=== PATIENT | female | born 1940 | race African-American/Black ===

== ENCOUNTER → 2017-10-19 | Outpatient (CLI) | payer MEDICARE, MEDICAID | END | disposition home or self-care (01) | LOC: Rad HDHVI 13:11 | PROVIDERS: ATTEND Internal Medicine Cardiovascular Disease | DX: I63.9 Cerebral infarction, unspecified (principal); I70.8 Atherosclerosis of other arteries; R29.818 Other symptoms and signs involving the nervous system | CPT/HCPCS: 70450 ==

== ENCOUNTER → 2017-11-10 | Outpatient (CLI) | payer MEDICARE, MEDICAID | END | disposition home or self-care (01) | LOC: Rad HDHVI 09:29 | PROVIDERS: ATTEND Internal Medicine Cardiovascular Disease | DX: I08.3 Combined rheumatic disorders of mitral, aortic and tricuspid valves (principal); E78.2 Mixed hyperlipidemia; I63.9 Cerebral infarction, unspecified | CPT/HCPCS: 93306; 93880 ==

== ENCOUNTER → 2017-11-25 | Outpatient (CLI) | payer MEDICARE, MEDICAID | END | disposition home or self-care (01) | LOC: Rad HDHVI 12:30 | PROVIDERS: ATTEND Internal Medicine Cardiovascular Disease | DX: J32.9 Chronic sinusitis, unspecified (principal) | CPT/HCPCS: 70220 ==

== ENCOUNTER → 2017-11-30 | Outpatient (CLI) | payer MEDICARE, MEDICAID ==
[~2017-11-30] MED LIST: ALEN70TA2 PO; ATOR20TA PO; CLOP75TA28 PO; DULO60CA PO; GABA300C10 PO; HYDR-2551 PO; LATA0.0015 EACHEYE; LISI40TA PO; MAGN400C2 PO; METO25TA5 PO; TRAV0.00 EACHEYE
[2017-11-30 11:00] VITALS: BP 187/76
[2017-11-30 11:45] VITALS: BP 163/77
[2017-11-30 16:11] LABS: BUN/Creatinine Ratio 14.1; Calcium 8.6 mg/dL (8.5-10.1)
[2017-11-30 16:29] LABS: Basophils # (auto) 0 uL; Basophils % (auto) 0.7 % (0.0-2.0); Eosinophils # (auto) 0.1 uL; Eosinophils % (auto) 2.3 % (0.0-7.0); Hematocrit 35.1 % (36.0-46.0); Hemoglobin 11.7 g/dL (12.2-16.2); Lymphocytes # (auto) 1.1 uL; Lymphocytes % (auto) 23.9 % (10.0-50.0); Mean Corpuscular Hemoglobin 32.1 pg (28.0-32.0); Mean Corpuscular Hgb Conc. 33.4 g/dL (32.0-36.0); Monocytes # (auto) 0.7 uL; Monocytes % (auto) 14.8 % (0.0-12.0); Neutrophils # (auto) 2.6 uL; Neutrophils % (auto) 58.3 % (37.0-80.0); Nucleated Red Blood Cells % 0.8 %; Platelet Count (auto) 187 10^3/uL (140-450); Red Blood Cells 3.65 10^6/uL (4.0-5.20); Red Cell Distribution Width 14.3 % (11.8-14.3); White Blood Cell 4.5 10^3/uL (4.4-10.8)
[2017-11-30 16:50] LABS: INR 0.92 (0.9-1.15); Partial Thromboplastin Time 28.2 sec (22.64-33.71)
== END | disposition home or self-care (01) ==
LOC: Rad HDHVI 11:05
PROVIDERS: ATTEND Internal Medicine Cardiovascular Disease
DX: Z01.818 Encounter for other preprocedural examination (principal); I70.0 Atherosclerosis of aorta; I10 Essential (primary) hypertension; D64.9 Anemia, unspecified; R79.1 Abnormal coagulation profile; E78.2 Mixed hyperlipidemia; J32.9 Chronic sinusitis, unspecified
CPT/HCPCS: 36415; 71046; 80048; 85025; 85610; 85730; 93005; G0463

== ENCOUNTER 2017-12-02 10:37 | Day surgery (SDC) | payer MEDICARE, MEDICAID ==
[~2017-12-02] VITALS: Ht 165.1 cm; Wt 78.5 kg
[2017-12-02] MEDS ORDERED: IOHEXOL 350 MG/ML 100ML IJ ONE (13:19)
[2017-12-02] MEDS ORDERED: LIDOCAINE HCL 2 %PF INJ 10ML AMP IJ ONE (13:19)
[2017-12-02] MEDS ORDERED: methylPREDNISolone SOD SUCC 125 MG/2 ML VL ONE (13:53)
[2017-12-02] MEDS ORDERED: diphenhdrAMINE HCL 50 MG/1 ML VL ONE (13:53)
[2017-12-02] MEDS ORDERED: MIDAZOLAM HCL 1MG/1ML-2 ML VIAL ONE (13:54)
[2017-12-02] MEDS ORDERED: fentaNYL CITRATE 100 MCG/2 ML VL ONE (13:54)
[2017-12-02] MEDS ORDERED: FAMOTIDINE (10MG/ML) 2ML VL IV ONE (13:54)
[2017-12-02] MEDS ORDERED: hydrALAZINE HCL 20 MG/ML VL ONE (14:52)
[2017-12-02] MEDS ORDERED: ONDANSETRON HCL 4 MG/2 ML VIAL ONE (15:15)
== END 2017-12-02 18:29 | disposition home or self-care (01) ==
LOC: CATH 10:37
PROVIDERS: ATTEND Internal Medicine Cardiovascular Disease
DX: I35.0 Nonrheumatic aortic (valve) stenosis (principal); I50.30 Unspecified diastolic (congestive) heart failure; Z88.5 Allergy status to narcotic agent; Z91.041 Radiographic dye allergy status; Z88.7 Allergy status to serum and vaccine; Z88.8 Allergy status to other drugs, medicaments and biological substances; E66.9 Obesity, unspecified; I25.2 Old myocardial infarction; I10 Essential (primary) hypertension; E78.5 Hyperlipidemia, unspecified; Z87.891 Personal history of nicotine dependence; I50.9 Heart failure, unspecified; Z79.01 Long term (current) use of anticoagulants; Z79.899 Other long term (current) drug therapy; I63.9 Cerebral infarction, unspecified
CPT/HCPCS: 93460; C1760; C1894; J0360; J1200; J1644; J2250; J2405; J2930; J3010; J3490; J7030; Q9967; 99152

== ENCOUNTER 2018-01-02 23:12 | Inpatient (IN) | payer MEDICARE, MEDICAID ==
[~2018-01-02] VITALS: Ht 167.6 cm; Wt 78.6 kg
[2018-01-03 00:31] LABS: Basophils # (auto) 0.1 uL; Eosinophils # (auto) 0.2 uL; Eosinophils % (auto) 2.1 % (0.0-7.0); Hematocrit 34.1 % (36.0-46.0); Hemoglobin 10.8 g/dL (12.2-16.2); Lymphocytes # (auto) 1.4 uL; Mean Corpuscular Hemoglobin 30.6 pg (28.0-32.0); Mean Corpuscular Hgb Conc. 31.8 g/dL (32.0-36.0); Mean Corpuscular Volume 96.1 fL (80.0-100.0); Monocytes # (auto) 0.4 uL; Monocytes % (auto) 5.3 % (0.0-12.0); Neutrophils # (auto) 5.3 uL; Neutrophils % (auto) 72.6 % (37.0-80.0); Nucleated Red Blood Cells % 0.1 %; Platelet Count (auto) 302 10^3/uL (140-450); Red Blood Cells 3.55 10^6/uL (4.0-5.20); Red Cell Distribution Width 17.4 % (11.8-14.3); White Blood Cell 7.3 10^3/uL (4.4-10.8)
[2018-01-03 00:38] LABS: INR 1.01 (0.9-1.15); Partial Thromboplastin Time 25.8 sec (23.78-33.04); Prothrombin Time 10.8 sec (9.27-12.13)
[2018-01-03 00:42] LABS: Alanine Aminotransferase 16 U/L (13-56); Albumin 2.7 g/dL (3.4-5.0); Anion Gap 11 (5-15); Aspartate Aminotransferase 19 U/L (15-37); BUN/Creatinine Ratio 8.9; Blood Urea Nitrogen 9 mg/dL (7-18); Calcium 8.6 mg/dL (8.5-10.1); Carbon Dioxide 24 mmol/L (21-32); Chloride 107 mmol/L (98-107); GFR African American 68 mL/min; GFR Non-African American 56 mL/min; Glucose 124 mg/dL (74-106); Magnesium 2.3 mg/dL (1.6-2.6); Potassium 3.5 mmol/L (3.5-5.1); Sodium 142 mmol/L (136-145)
[2018-01-03 00:48] LABS: Alkaline Phosphatase 74 U/L (45-117); Bilirubin, Total 0.3 mg/dL (0.2-1.0); Total Protein 7.3 g/dL (6.4-8.2)
[2018-01-03] MEDS ORDERED: ONDANSETRON HCL 4 MG/2 ML VIAL IV ONE (01:00)
[2018-01-03] MEDS ORDERED: SODIUM CHLORIDE 0.9% 1,000 ML IV ONE (01:00)
[2018-01-03] MEDS ORDERED: ONDANSETRON HCL 4 MG/2 ML VIAL IV PRN (07:00)
[2018-01-03] MEDS ORDERED: ACETAMINOPHEN 500 MG TAB PO PRN (07:00)
[2018-01-03 07:16] LABS: Urine WBC None Seen /hpf (0 - 5)
[2018-01-03 07:17] LABS: Basophils # (auto) 0.1 uL; Eosinophils # (auto) 0.1 uL; Eosinophils % (auto) 1.9 % (0.0-7.0); Hemoglobin 9.4 g/dL (12.2-16.2); Lymphocytes # (auto) 1.4 uL; Lymphocytes % (auto) 26.3 % (10.0-50.0); Mean Corpuscular Hemoglobin 30.3 pg (28.0-32.0); Mean Corpuscular Hgb Conc. 31.5 g/dL (32.0-36.0); Mean Corpuscular Volume 96.4 fL (80.0-100.0); Monocytes # (auto) 0.5 uL; Monocytes % (auto) 9.6 % (0.0-12.0); Neutrophils # (auto) 3.2 uL; Neutrophils % (auto) 61.2 % (37.0-80.0); Nucleated Red Blood Cells % 0.1 %; Platelet Count (auto) 263 10^3/uL (140-450); Red Blood Cells 3.11 10^6/uL (4.0-5.20); Red Cell Distribution Width 17.8 % (11.8-14.3); White Blood Cell 5.2 10^3/uL (4.4-10.8)
[2018-01-03 07:26] LABS: Urine Bacteria FEW /hpf (None Seen); Urine Blood Negative /uL (Negative); Urine Hyaline Cast FEW /lpf (0 - 2); Urine Mucus FEW (None Seen)
[2018-01-03 07:44] LABS: BUN/Creatinine Ratio 14.3; Potassium 3.8 mmol/L (3.5-5.1)
[2018-01-03] MEDS ORDERED: LISINOPRIL 20 MG TAB PO SCH (10:00)
[2018-01-03] MEDS: GABAPENTIN 300 MG CAP PO SCH ×2 (10:11→23:08)
[2018-01-03] MEDS: DULoxetine HCL 30 MG CAP PO SCH (10:11)
[2018-01-03] MEDS: CLOPIDOGREL BISULFATE 75 MG TAB PO SCH (10:12)
[2018-01-03 22:35] VITALS: BP 180/80
[2018-01-03 23:46] VITALS: BP 180/80
[2018-01-04] MEDS ORDERED: LISINOPRIL 20 MG TAB PO ONE (00:15)
[2018-01-04] MEDS ORDERED: METO25TA3 PO (04:48)
[2018-01-04] MEDS ORDERED: GABA300C PO (04:48)
[2018-01-04] MEDS ORDERED: METO25TA5 PO (04:48)
[2018-01-04] MEDS ORDERED: LISI40TA PO (04:48)
[2018-01-04] MEDS ORDERED: GABA100C9 PO (04:48)
[2018-01-04 05:37] VITALS: BP 160/79
[2018-01-04 08:00] VITALS: BP 152/88
[2018-01-04 09:00] VITALS: BP 140/59
[2018-01-04] MEDS: DULoxetine HCL 30 MG CAP PO SCH (10:53)
[2018-01-04] MEDS: CLOPIDOGREL BISULFATE 75 MG TAB PO SCH (10:53)
[2018-01-04] MEDS: GABAPENTIN 300 MG CAP PO SCH ×2 (10:53→21:51)
[2018-01-04] MEDS: LISINOPRIL 20 MG TAB PO SCH ×2 (10:54→21:52)
[2018-01-04 13:00] VITALS: BP 191/101
[2018-01-04 17:00] VITALS: BP 174/78
[2018-01-04] MEDS: cloNIDine HCL 0.1 MG TAB PO PRN (17:28)
[2018-01-04] MEDS: METOPROLOL TARTRATE 25 MG TAB PO SCH (21:53)
[2018-01-04 22:00] VITALS: BP 153/70
[2018-01-05 05:00] VITALS: BP 152/74
[2018-01-05 08:00] VITALS: BP_SYST 140; BP_SYST 149; BP_DIAS 65; BP_DIAS 70
[2018-01-05] MEDS: CLOPIDOGREL BISULFATE 75 MG TAB PO SCH (10:19)
[2018-01-05] MEDS: LISINOPRIL 20 MG TAB PO SCH ×2 (10:19→23:21)
[2018-01-05] MEDS: GABAPENTIN 300 MG CAP PO SCH ×2 (10:19→23:21)
[2018-01-05] MEDS: DULoxetine HCL 30 MG CAP PO SCH (10:19)
[2018-01-05 12:35] VITALS: BP 151/79
[2018-01-05] MEDS ORDERED: EPOETIN ALFA 10,000 UNIT/1 ML VIAL SC ONE (15:00)
[2018-01-05] MEDS ORDERED: TRIAMCINOLONE 40MG/ML 1ML VIAL IX ONE (15:15)
[2018-01-05] MEDS ORDERED: LIDOCAINE 2% (LOCAL ANESTH.) PF 5ml SDV IJ ONE (15:15)
[2018-01-05 16:00] LABS: Basophils # (auto) 0.1 uL; Basophils % (auto) 0.7 % (0.0-2.0); Eosinophils # (auto) 0.1 uL; Hematocrit 31.9 % (36.0-46.0); Hemoglobin 10.3 g/dL (12.2-16.2); Lymphocytes # (auto) 1.3 uL; Lymphocytes % (auto) 15.9 % (10.0-50.0); Mean Corpuscular Hemoglobin 30.9 pg (28.0-32.0); Mean Corpuscular Hgb Conc. 32.4 g/dL (32.0-36.0); Mean Corpuscular Volume 95.3 fL (80.0-100.0); Monocytes # (auto) 0.8 uL; Neutrophils # (auto) 5.9 uL; Neutrophils % (auto) 72.4 % (37.0-80.0); Nucleated Red Blood Cells % 0.1 %; Platelet Count (auto) 225 10^3/uL (140-450); Red Blood Cells 3.35 10^6/uL (4.0-5.20); Red Cell Distribution Width 17.3 % (11.8-14.3); White Blood Cell 8.2 10^3/uL (4.4-10.8)
[2018-01-05 16:28] VITALS: BP 150/107
[2018-01-05] MEDS: cefTRIAXone 1GM/10ml IVPUSH 10 ML IV SCH (18:06)
[2018-01-05] MEDS: FERROUS SULFATE 325 MG TAB PO SCH (18:06)
[2018-01-05] MEDS: ALLOPURINOL 300 MG TAB PO SCH (18:06)
[2018-01-05] MEDS: SODIUM CHLORIDE 0.9% 1,000 ML IV SCH (18:06)
[2018-01-05 22:00] VITALS: BP 169/64
[2018-01-05] MEDS ORDERED: KETOROLAC TROMETH 60MG/2ML VIAL IM ONE (22:45)
[2018-01-05] MEDS ORDERED: TRIAMCINOLONE 40MG/ML 1ML VIAL IM ONE (22:45)
[2018-01-05] MEDS: METOPROLOL TARTRATE 25 MG TAB PO SCH (23:22)
[2018-01-06] MEDS: SODIUM CHLORIDE 0.9% 1,000 ML IV SCH ×3 (01:00→21:29)
[2018-01-06 05:30] VITALS: BP 144/75
[2018-01-06 06:39] LABS: Basophils # (auto) 0 uL; Basophils % (auto) 0.8 % (0.0-2.0); Eosinophils # (auto) 0.1 uL; Hematocrit 27.6 % (36.0-46.0); Hemoglobin 9.1 g/dL (12.2-16.2); Lymphocytes # (auto) 1.2 uL; Mean Corpuscular Hemoglobin 31.2 pg (28.0-32.0); Mean Corpuscular Hgb Conc. 32.9 g/dL (32.0-36.0); Mean Corpuscular Volume 94.7 fL (80.0-100.0); Monocytes % (auto) 17.1 % (0.0-12.0); Neutrophils # (auto) 3.6 uL; Neutrophils % (auto) 60.1 % (37.0-80.0); Nucleated Red Blood Cells % 0.2 %; Platelet Count (auto) 194 10^3/uL (140-450); Red Blood Cells 2.91 10^6/uL (4.0-5.20); Red Cell Distribution Width 17.4 % (11.8-14.3); White Blood Cell 6.1 10^3/uL (4.4-10.8)
[2018-01-06 06:53] LABS: Albumin 2.3 g/dL (3.4-5.0); BUN/Creatinine Ratio 14.3; Calcium 8.2 mg/dL (8.5-10.1); Potassium 3.8 mmol/L (3.5-5.1)
[2018-01-06 06:56] LABS: Bilirubin, Total 0.3 mg/dL (0.2-1.0); Total Protein 6.6 g/dL (6.4-8.2)
[2018-01-06] MEDS: LISINOPRIL 20 MG TAB PO SCH ×2 (08:51→22:30)
[2018-01-06] MEDS: cefTRIAXone 1GM/10ml IVPUSH 10 ML IV SCH (08:51)
[2018-01-06] MEDS: ALLOPURINOL 300 MG TAB PO SCH (08:51)
[2018-01-06] MEDS: DULoxetine HCL 30 MG CAP PO SCH (08:52)
[2018-01-06] MEDS: FERROUS SULFATE 325 MG TAB PO SCH ×2 (08:52→17:39)
[2018-01-06] MEDS: CLOPIDOGREL BISULFATE 75 MG TAB PO SCH (08:52)
[2018-01-06] MEDS: GABAPENTIN 300 MG CAP PO SCH ×2 (08:52→22:27)
[2018-01-06 09:00] VITALS: BP 156/74
[2018-01-06] MEDS ORDERED: EPOETIN ALFA 10,000 UNIT/1 ML VIAL SC ONE (11:15)
[2018-01-06 13:00] VITALS: BP 161/87
[2018-01-06 16:46] VITALS: BP 141/69
[2018-01-06] MEDS ORDERED: TRIAMCINOLONE 40MG/ML 1ML VIAL IX ONE (17:45)
[2018-01-06] MEDS ORDERED: LIDOCAINE 2% (LOCAL ANESTH.) PF 5ml SDV IJ ONE (17:45)
[2018-01-06 20:00] VITALS: BP 159/86
[2018-01-06] MEDS: METOPROLOL TARTRATE 25 MG TAB PO SCH (22:27)
[2018-01-07 04:56] VITALS: BP 169/91
[2018-01-07] MEDS: SODIUM CHLORIDE 0.9% 1,000 ML IV SCH ×2 (07:00→18:11)
[2018-01-07] MEDS: cloNIDine HCL 0.1 MG TAB PO PRN (07:35)
[2018-01-07] MEDS: FERROUS SULFATE 325 MG TAB PO SCH ×2 (08:00→18:11)
[2018-01-07 09:00] VITALS: BP 183/94
[2018-01-07] MEDS: cefTRIAXone 1GM/10ml IVPUSH 10 ML IV SCH (09:40)
[2018-01-07] MEDS: DULoxetine HCL 30 MG CAP PO SCH (09:41)
[2018-01-07] MEDS: GABAPENTIN 300 MG CAP PO SCH ×2 (09:41→22:02)
[2018-01-07] MEDS: CLOPIDOGREL BISULFATE 75 MG TAB PO SCH (09:43)
[2018-01-07] MEDS: LISINOPRIL 20 MG TAB PO SCH ×2 (09:43→22:02)
[2018-01-07] MEDS: ALLOPURINOL 300 MG TAB PO SCH (09:43)
[2018-01-07 13:00] VITALS: BP 141/69
[2018-01-07] MEDS ORDERED: TRIAMCINOLONE 40MG/ML 1ML VIAL IX ONE ×2 (14:45)
[2018-01-07 17:00] VITALS: BP 149/75
[2018-01-07] MEDS: METOPROLOL TARTRATE 25 MG TAB PO SCH (22:01)
[2018-01-07 22:32] VITALS: BP 175/91
[2018-01-08] MEDS: cloNIDine HCL 0.1 MG TAB PO PRN (03:57)
[2018-01-08] MEDS: SODIUM CHLORIDE 0.9% 1,000 ML IV SCH ×3 (03:57→23:29)
[2018-01-08 05:32] VITALS: BP 169/91
[2018-01-08] MEDS: FERROUS SULFATE 325 MG TAB PO SCH ×2 (08:13→18:08)
[2018-01-08] MEDS: cefTRIAXone 1GM/10ml IVPUSH 10 ML IV SCH (08:14)
[2018-01-08 09:00] VITALS: BP 143/73
[2018-01-08] MEDS: GABAPENTIN 300 MG CAP PO SCH ×2 (10:02→21:17)
[2018-01-08] MEDS: DULoxetine HCL 30 MG CAP PO SCH (10:02)
[2018-01-08] MEDS: CLOPIDOGREL BISULFATE 75 MG TAB PO SCH (10:03)
[2018-01-08] MEDS: ALLOPURINOL 300 MG TAB PO SCH (10:07)
[2018-01-08] MEDS: LISINOPRIL 20 MG TAB PO SCH ×2 (10:10→21:18)
[2018-01-08 13:00] VITALS: BP 156/84
[2018-01-08 16:56] VITALS: BP 155/81
[2018-01-08] MEDS: BOOST 8 ounces PO SCH (18:08)
[2018-01-08] MEDS ORDERED: FUROSEMIDE 20 MG/2 ML VIAL IV ONE (20:30)
[2018-01-08] MEDS ORDERED: ALBUTEROL SULF 2.5 MG/0.5ML(0.5%) NEB SOLN NEB PRN (20:30)
[2018-01-08] MEDS: METOPROLOL TARTRATE 25 MG TAB PO SCH (21:17)
[2018-01-08 22:09] VITALS: BP 161/89
[2018-01-09] MEDS: cloNIDine HCL 0.1 MG TAB PO PRN (04:46)
[2018-01-09 05:19] VITALS: BP 193/102
[2018-01-09 08:00] VITALS: BP 119/63
[2018-01-09] MEDS: FERROUS SULFATE 325 MG TAB PO SCH ×2 (08:11→18:22)
[2018-01-09] MEDS: cefTRIAXone 1GM/10ml IVPUSH 10 ML IV SCH ×2 (08:11→11:29)
[2018-01-09] MEDS: BOOST 8 ounces PO SCH ×3 (08:11→18:22)
[2018-01-09] MEDS: ALLOPURINOL 300 MG TAB PO SCH (10:33)
[2018-01-09] MEDS: DULoxetine HCL 30 MG CAP PO SCH (10:33)
[2018-01-09] MEDS: LISINOPRIL 20 MG TAB PO SCH ×2 (10:33→22:11)
[2018-01-09] MEDS: GABAPENTIN 300 MG CAP PO SCH ×2 (10:34→22:06)
[2018-01-09] MEDS: CLOPIDOGREL BISULFATE 75 MG TAB PO SCH (10:34)
[2018-01-09 10:42] VITALS: BP 159/84
[2018-01-09] MEDS ORDERED: EPOETIN ALFA 10,000 UNIT/1 ML VIAL SC ONE (11:30)
[2018-01-09 12:30] LABS: Basophils # (auto) 0.1 uL; Basophils % (auto) 1.1 % (0.0-2.0); Eosinophils # (auto) 0 uL; Eosinophils % (auto) 0.6 % (0.0-7.0); Hematocrit 29.5 % (36.0-46.0); Hemoglobin 9.2 g/dL (12.2-16.2); Mean Corpuscular Hemoglobin 29.9 pg (28.0-32.0); Mean Corpuscular Hgb Conc. 31.1 g/dL (32.0-36.0); Mean Corpuscular Volume 96.4 fL (80.0-100.0); Monocytes # (auto) 0.6 uL; Monocytes % (auto) 12.3 % (0.0-12.0); Neutrophils # (auto) 3.4 uL; Platelet Count (auto) 236 10^3/uL (140-450); Red Blood Cells 3.06 10^6/uL (4.0-5.20); Red Cell Distribution Width 17.6 % (11.8-14.3); White Blood Cell 5.1 10^3/uL (4.4-10.8)
[2018-01-09 12:45] LABS: BUN/Creatinine Ratio 24.6; Calcium 9.1 mg/dL (8.5-10.1); Potassium 4.3 mmol/L (3.5-5.1)
[2018-01-09 13:03] VITALS: BP 142/79
[2018-01-09 16:36] VITALS: BP 135/77
[2018-01-09 22:00] VITALS: BP 142/75
[2018-01-09] MEDS: METOPROLOL TARTRATE 25 MG TAB PO SCH (22:09)
[2018-01-10 04:37] VITALS: BP 154/91
[2018-01-10] MEDS: cloNIDine HCL 0.1 MG TAB PO PRN (07:53)
[2018-01-10 09:00] VITALS: BP 199/105
[2018-01-10] MEDS: GABAPENTIN 300 MG CAP PO SCH ×2 (09:14→21:36)
[2018-01-10] MEDS: cefTRIAXone 1GM/10ml IVPUSH 10 ML IV SCH (09:14)
[2018-01-10] MEDS: FERROUS SULFATE 325 MG TAB PO SCH ×2 (09:14→17:36)
[2018-01-10] MEDS: DULoxetine HCL 30 MG CAP PO SCH (09:15)
[2018-01-10] MEDS: CLOPIDOGREL BISULFATE 75 MG TAB PO SCH (09:15)
[2018-01-10] MEDS: ALLOPURINOL 300 MG TAB PO SCH (09:15)
[2018-01-10] MEDS: BOOST 8 ounces PO SCH ×3 (09:16→17:37)
[2018-01-10] MEDS: LISINOPRIL 20 MG TAB PO SCH ×2 (09:16→21:36)
[2018-01-10 13:00] VITALS: BP 128/77
[2018-01-10 17:00] VITALS: BP 134/72
[2018-01-10 21:25] VITALS: BP 154/73
[2018-01-10] MEDS: METOPROLOL TARTRATE 25 MG TAB PO SCH (21:35)
[2018-01-11 04:40] VITALS: BP 156/88
[2018-01-11 09:00] VITALS: BP 155/89
[2018-01-11] MEDS: FERROUS SULFATE 325 MG TAB PO SCH (09:30)
[2018-01-11] MEDS: cefTRIAXone 1GM/10ml IVPUSH 10 ML IV SCH (09:30)
[2018-01-11] MEDS: BOOST 8 ounces PO SCH ×2 (09:30→12:00)
[2018-01-11] MEDS: CLOPIDOGREL BISULFATE 75 MG TAB PO SCH (09:31)
[2018-01-11] MEDS: DULoxetine HCL 30 MG CAP PO SCH (09:31)
[2018-01-11] MEDS: GABAPENTIN 300 MG CAP PO SCH (09:31)
[2018-01-11] MEDS: LISINOPRIL 20 MG TAB PO SCH (09:32)
[2018-01-11] MEDS: ALLOPURINOL 300 MG TAB PO SCH (09:32)
[2018-01-11 13:00] VITALS: BP 145/95
[2018-01-11 17:00] VITALS: BP 159/61
== END 2018-01-11 18:05 | disposition home or self-care (01) | DRG 291 ==
LOC: ER 23:13 → OVERFLOW 23:14 → WEST WING 01-03 22:35
PROVIDERS: ADMIT Nurse Practitioner Family; ATTEND Internal Medicine Cardiovascular Disease
PROC: 3E0U33Z Introduction of Anti-inflammatory into Joints, Percutaneous Approach (ICD-10-PCS; principal; 2018-01-11)
DX: I11.0 Hypertensive heart disease with heart failure (principal); A41.9 Sepsis, unspecified organism; J18.9 Pneumonia, unspecified organism; J44.0 Chronic obstructive pulmonary disease with (acute) lower respiratory infection; J44.1 Chronic obstructive pulmonary disease with (acute) exacerbation; I50.43 Acute on chronic combined systolic (congestive) and diastolic (congestive) heart failure; D64.9 Anemia, unspecified; M77.9 Enthesopathy, unspecified; R55 Syncope and collapse; K59.00 Constipation, unspecified; M81.0 Age-related osteoporosis without current pathological fracture; Z79.899 Other long term (current) drug therapy; Z79.83 Long term (current) use of bisphosphonates; Z82.49 Family history of ischemic heart disease and other diseases of the circulatory system; Z86.73 Personal history of transient ischemic attack (TIA), and cerebral infarction without residual deficits; Z88.5 Allergy status to narcotic agent; Z88.7 Allergy status to serum and vaccine; Z88.8 Allergy status to other drugs, medicaments and biological substances; Z91.041 Radiographic dye allergy status
CPT/HCPCS: 36415; 70450; 71045; 73100; 80048; 80053; 81001; 82607; 82962; 83690; 83735; 83880; 84484; 85025; 85610; 85730; 93005; 96361; 96374; 97116; 97163; 97530; J0885; J1885; J2405

== ENCOUNTER → 2018-03-10 | Outpatient (CLI) | payer MEDICARE, MEDICAID ==
[~2018-03-10] MED LIST changes: -ALEN70TA2 PO; +AMLO5TAB2 PO; +ATOR20TA50 PO; +BUTA-280 OR; +GABA100C9 PO; -HYDR-2551 PO; -LATA0.0015 EACHEYE; +LATA0.0020 EACHEYE; +LEVO-28 PO; +MAGN400T5 OR; +METO-169 PO; -METO25TA5 PO; +METO25TA62 PO; -TRAV0.00 EACHEYE
== END | disposition home or self-care (01) ==
LOC: Rad HDHVI 10:50
PROVIDERS: ATTEND Internal Medicine Cardiovascular Disease
DX: I08.2 Rheumatic disorders of both aortic and tricuspid valves (principal); I11.0 Hypertensive heart disease with heart failure; I50.9 Heart failure, unspecified; E78.5 Hyperlipidemia, unspecified; Z79.899 Other long term (current) drug therapy
CPT/HCPCS: 93306

== ENCOUNTER 2018-04-18 08:45 | Emergency (ER) | payer MEDICARE, MEDICAID ==
[~2018-04-18] VITALS: Ht 165.1 cm; Wt 73.0 kg
[2018-04-18 10:13] LABS: Basophils # (auto) 0 uL; Basophils % (auto) 0.9 % (0.0-2.0); Eosinophils # (auto) 0.1 uL; Eosinophils % (auto) 2.4 % (0.0-7.0); Hematocrit 37.8 % (36.0-46.0); Hemoglobin 12.6 g/dL (12.2-16.2); Lymphocytes # (auto) 1.6 uL; Lymphocytes % (auto) 31.4 % (10.0-50.0); Mean Corpuscular Hemoglobin 31.5 pg (28.0-32.0); Mean Corpuscular Hgb Conc. 33.2 g/dL (32.0-36.0); Mean Corpuscular Volume 94.8 fL (80.0-100.0); Monocytes # (auto) 0.5 uL; Monocytes % (auto) 8.9 % (0.0-12.0); Neutrophils # (auto) 2.9 uL; Neutrophils % (auto) 56.4 % (37.0-80.0); Nucleated Red Blood Cells % 0.1 %; Platelet Count (auto) 188 10^3/uL (140-450); Red Blood Cells 3.99 10^6/uL (4.0-5.20); Red Cell Distribution Width 16.9 % (11.8-14.3); White Blood Cell 5.2 10^3/uL (4.4-10.8)
[2018-04-18 10:30] LABS: Alanine Aminotransferase 23 U/L (13-56); Albumin 3.1 g/dL (3.4-5.0); Anion Gap 10 (5-15); Aspartate Aminotransferase 18 U/L (15-37); Blood Urea Nitrogen 13 mg/dL (7-18); Calcium 8.3 mg/dL (8.5-10.1); Carbon Dioxide 24 mmol/L (21-32); Chloride 107 mmol/L (98-107); GFR African American 113 mL/min; GFR Non-African American 94 mL/min; Glucose 83 mg/dL (74-106); Magnesium 2.3 mg/dL (1.6-2.6); Sodium 141 mmol/L (136-145)
[2018-04-18 10:35] LABS: Alkaline Phosphatase 81 U/L (45-117); Bilirubin, Total 0.3 mg/dL (0.2-1.0)
[2018-04-18] MEDS ORDERED: SODIUM CHLORIDE 0.9% 1,000 ML IV ONE (10:40)
[2018-04-18 13:35] LABS: Urine Bacteria NONE SEEN /hpf (None Seen); Urine Blood Negative /uL (Negative); Urine WBC 1 /hpf (0 - 5)
[2018-04-18 16:30] VITALS: BP 163/83
== END 2018-04-18 17:34 | disposition home or self-care (01) ==
LOC: ER 08:45 → EDBD 08:45 → ER 17:34
DX: R55 Syncope and collapse (principal); E46 Unspecified protein-calorie malnutrition; E78.5 Hyperlipidemia, unspecified; I25.2 Old myocardial infarction; Z90.710 Acquired absence of both cervix and uterus; Z86.73 Personal history of transient ischemic attack (TIA), and cerebral infarction without residual deficits; Z98.61 Coronary angioplasty status; Z87.891 Personal history of nicotine dependence; Z95.0 Presence of cardiac pacemaker; Z68.26 Body mass index [BMI] 26.0-26.9, adult
CPT/HCPCS: 36415; 70450; 71045; 80053; 81001; 82962; 83735; 84443; 84484; 85025; 96360; 96361; 99285; J7030

== ENCOUNTER → 2018-04-28 | Outpatient (CLI) | payer MEDICARE, MEDICAID ==
[~2018-04-28] MED LIST changes: +AMLO5TAB13 PO; -AMLO5TAB2 PO
== END | disposition home or self-care (01) ==
LOC: Rad HDHVI 15:35
PROVIDERS: ATTEND Internal Medicine Cardiovascular Disease
DX: M19.041 Primary osteoarthritis, right hand (principal); Z88.9 Allergy status to unspecified drugs, medicaments and biological substances; Z88.5 Allergy status to narcotic agent
CPT/HCPCS: 73130

== ENCOUNTER → 2018-10-13 | Outpatient (CLI) | payer MEDICARE, MEDICAID | END | disposition home or self-care (01) | LOC: Rad HDHVI 09:31 | PROVIDERS: ATTEND Internal Medicine Cardiovascular Disease | DX: I67.2 Cerebral atherosclerosis (principal); I67.82 Cerebral ischemia; J34.2 Deviated nasal septum | CPT/HCPCS: 70450; 70486 ==

== ENCOUNTER → 2019-01-04 | Outpatient (CLI) | payer MEDICARE, MEDICAID | END | disposition home or self-care (01) | LOC: Rad HDHVI 08:33 | PROVIDERS: ATTEND Internal Medicine Cardiovascular Disease | DX: I08.3 Combined rheumatic disorders of mitral, aortic and tricuspid valves (principal); I11.0 Hypertensive heart disease with heart failure; I50.33 Acute on chronic diastolic (congestive) heart failure | CPT/HCPCS: 93306 ==

== ENCOUNTER → 2020-02-09 | Outpatient (CLI) | payer MEDICARE, MEDICAID ==
[~2020-02-09] MED LIST changes: -AMLO5TAB13 PO; +AMLO5TAB15 PO; +MAGN400T40 OR; -MAGN400T5 OR; -METO25TA62 PO; +METO25TA93 PO
== END | disposition home or self-care (01) ==
LOC: Rad HDHVI 14:37
PROVIDERS: ATTEND Internal Medicine Cardiovascular Disease
DX: I50.33 Acute on chronic diastolic (congestive) heart failure (principal); I42.1 Obstructive hypertrophic cardiomyopathy
CPT/HCPCS: 93306

== ENCOUNTER → 2020-02-10 | Outpatient (CLI) | payer MEDICARE, MEDICAID ==
[~2020-02-10] VITALS: Ht 165.1 cm; Wt 88.5 kg
[~2020-02-10] MED LIST changes: +ADENOSINE 74 MG in GIVE UN-DILUTED 0 ML IV ONE; +ADENOSINE 90 MG/30 ML INJ IV ONE
[2020-02-10 11:54] LABS: Basophils # (auto) 0.1 10 ^3/uL (0-0.2); Basophils % (auto) 1.1 % (0.0-2.0); Eosinophils # (auto) 0.2 10 ^3/uL (0-0.8); Eosinophils % (auto) 3.6 % (0.0-7.0); Hematocrit 38.8 % (36.0-46.0); Hemoglobin 12.7 g/dL (12.2-16.2); Lymphocytes % (auto) 38.1 % (10.0-50.0); Mean Corpuscular Hemoglobin 31.7 pg (28.0-32.0); Mean Corpuscular Hgb Conc. 32.8 g/dL (32.0-36.0); Mean Corpuscular Volume 96.6 fL (80.0-100.0); Monocytes # (auto) 0.6 10 ^3/uL (0-1.3); Monocytes % (auto) 11.9 % (0.0-12.0); Neutrophils # (auto) 2.4 10 ^3/uL (1.6-8.6); Neutrophils % (auto) 45.3 % (37.0-80.0); Nucleated Red Blood Cells % 0.1 %; Platelet Count (auto) 164 10^3/uL (140-450); Red Blood Cells 4.01 10^6/uL (4.0-5.20); Red Cell Distribution Width 14.2 % (11.8-14.3); White Blood Cell 5.2 10^3/uL (4.4-10.8)
[2020-02-10 12:02] LABS: Albumin 3.5 g/dL (3.4-5.0); Calcium 9.3 mg/dL (8.5-10.1); Potassium 4.2 mmol/L (3.5-5.1)
[2020-02-10 12:09] LABS: BUN/Creatinine Ratio 12.1; Bilirubin, Total 0.4 mg/dL (0.2-1.0); Total Protein 7.8 g/dL (6.4-8.2)
== END | disposition home or self-care (01) ==
LOC: Rad HDHVI 08:41
PROVIDERS: ATTEND Internal Medicine Cardiovascular Disease
DX: Z00.00 Encounter for general adult medical examination without abnormal findings (principal); J45.909 Unspecified asthma, uncomplicated; I10 Essential (primary) hypertension; E03.9 Hypothyroidism, unspecified; K90.9 Intestinal malabsorption, unspecified; N39.0 Urinary tract infection, site not specified; D51.9 Vitamin B12 deficiency anemia, unspecified; R07.9 Chest pain, unspecified; R00.2 Palpitations; N64.89 Other specified disorders of breast; Z90.710 Acquired absence of both cervix and uterus; Z79.899 Other long term (current) drug therapy
CPT/HCPCS: 36415; 78452; 80053; 80061; 82306; 82607; 83036; 84436; 84443; 85025; 93005; 96374; 96375; A9500; J0153

== ENCOUNTER → 2020-03-09 | Outpatient (CLI) | payer MEDICARE, MEDICAID ==
[~2020-03-09] VITALS: Ht 165.1 cm; Wt 86.2 kg
[~2020-03-09] MED LIST changes: -ADENOSINE 74 MG in GIVE UN-DILUTED 0 ML IV ONE; -ADENOSINE 90 MG/30 ML INJ IV ONE; +AMLO10TA13 PO; +ASCO100076 PO; +ASPI1TAB19 PO; +CHOL10009 PO; +FURO1TAB33 PO; -LISI40TA PO; +LISI40TA11 PO; -MAGN400T40 OR; +MAGN400T40 PO; +METO-6 PO; +MULT-1018 PO; +POTA10TA51 PO
[2020-03-09 10:30] VITALS: BP 113/58
--- NOTE | 2020-03-09 10:30 | NUR ---
CLINIC PT ARRIVED TO THE [facility] FOR PRE OP EKG, CXR, AND LABS FOR [facility] AND [facility] ON 03/15/20 WITH MD RANKIN. A/OX4, AMBULATORY WITH CANE AND ASSISTED BY GRANDDAUGHTER. BREATHING IS EVEN AND UNLABORED.
--- NOTE | 2020-03-09 10:39 | NUR ---
EKG DONE BY CHATO LINDSAY REVIEWED BY IZZY FRANCE SR 61
[2020-03-09 10:53] VITALS: BP 103/60
--- NOTE | 2020-03-09 10:58 | NUR ---
Pre-Op Discharge Summary: See e-MAR for any medications given for this visit. Pre-op orders received and carried out per MD of EKG, LABS and chest xrays. Patient given a copy of EKG with instructions to go to [facility] out patient for further follow up care. NOTE EKG DONE BY CHATO LINDSAY REVIEWED BY IZZY FRANCE
[2020-03-09 12:07] LABS: Basophils # (auto) 0 10 ^3/uL (0-0.2); Basophils % (auto) 0.4 % (0.0-2.0); Eosinophils # (auto) 0.2 10 ^3/uL (0-0.8); Hematocrit 38.1 % (36.0-46.0); Hemoglobin 12.9 g/dL (12.2-16.2); Lymphocytes # (auto) 1.8 10 ^3/uL (0.4-5.4); Lymphocytes % (auto) 34.3 % (10.0-50.0); Mean Corpuscular Hemoglobin 32.6 pg (28.0-32.0); Mean Corpuscular Hgb Conc. 33.9 g/dL (32.0-36.0); Mean Corpuscular Volume 96.4 fL (80.0-100.0); Monocytes # (auto) 0.8 10 ^3/uL (0-1.3); Monocytes % (auto) 16.2 % (0.0-12.0); Neutrophils # (auto) 2.4 10 ^3/uL (1.6-8.6); Neutrophils % (auto) 46.1 % (37.0-80.0); Nucleated Red Blood Cells % 0.1 %; Platelet Count (auto) 163 10^3/uL (140-450); Red Blood Cells 3.95 10^6/uL (4.0-5.20); Red Cell Distribution Width 14.1 % (11.8-14.3); White Blood Cell 5.3 10^3/uL (4.4-10.8)
[2020-03-09 12:08] LABS: BUN/Creatinine Ratio 13.9; Calcium 8.9 mg/dL (8.5-10.1); Potassium 4.4 mmol/L (3.5-5.1)
[2020-03-09 12:13] LABS: Partial Thromboplastin Time 28.5 sec (23.64-32.05)
== END | disposition home or self-care (01) ==
LOC: Rad HDHVI 09:58
PROVIDERS: ATTEND Internal Medicine Cardiovascular Disease
DX: Z01.812 Encounter for preprocedural laboratory examination (principal); I10 Essential (primary) hypertension; D64.9 Anemia, unspecified; R79.1 Abnormal coagulation profile; I25.10 Atherosclerotic heart disease of native coronary artery without angina pectoris; Z86.73 Personal history of transient ischemic attack (TIA), and cerebral infarction without residual deficits
CPT/HCPCS: 36415; 71046; 80048; 85025; 85610; 85730; 93005; G0463

== ENCOUNTER 2020-03-15 06:49 | Day surgery (SDC) | payer MEDICARE, MEDICAID ==
[~2020-03-15 06:49] MED LIST changes: -AMLO5TAB15 PO; -ASPI1TAB19 PO; -ATOR20TA PO; -ATOR20TA50 PO; -BUTA-280 OR; -GABA100C9 PO; -LEVO-28 PO; -MAGN400C2 PO; -METO-169 PO; -METO25TA93 PO
[2020-03-15] MEDS ORDERED: LIDOCAINE 2%HCL (LOCAL ANESTH.) INJ 20ML MDV ONE ×2 (08:10→09:51)
[2020-03-15] MEDS ORDERED: IOHEXOL 350 MG/ML 100ML IJ ONE (08:11)
[2020-03-15] MEDS ORDERED: methylPREDNISolone SOD SUCC 125 MG/2 ML VL ONE (08:13)
[2020-03-15] MEDS ORDERED: diphenhdrAMINE HCL 50 MG/1 ML VL ONE (08:13)
[2020-03-15] MEDS ORDERED: MIDAZOLAM HCL 1MG/1ML-2 ML VIAL ONE (08:14)
[2020-03-15] MEDS ORDERED: fentaNYL CITRATE 100 MCG/2 ML VL ONE (08:14)
[2020-03-15] MEDS ORDERED: FAMOTIDINE (10MG/ML) 2ML VL IV ONE (08:15)
[2020-03-15] MEDS ORDERED: ONDANSETRON HCL 4 MG/2 ML VIAL IV PRN (11:00)
[2020-03-15] MEDS ORDERED: ACETAMINOPHEN 500 MG TAB PO PRN (11:00)
== END 2020-03-15 14:10 | disposition home or self-care (01) ==
LOC: CATH 06:49
PROVIDERS: ATTEND Internal Medicine Cardiovascular Disease
DX: R06.02 Shortness of breath (principal); I25.10 Atherosclerotic heart disease of native coronary artery without angina pectoris; I35.0 Nonrheumatic aortic (valve) stenosis; I10 Essential (primary) hypertension; E78.5 Hyperlipidemia, unspecified; I25.2 Old myocardial infarction; J45.909 Unspecified asthma, uncomplicated; I63.9 Cerebral infarction, unspecified; M19.90 Unspecified osteoarthritis, unspecified site; Z95.0 Presence of cardiac pacemaker; Z87.891 Personal history of nicotine dependence; Z79.899 Other long term (current) drug therapy; Z86.73 Personal history of transient ischemic attack (TIA), and cerebral infarction without residual deficits; Z11.59 Encounter for screening for other viral diseases; Z98.890 Other specified postprocedural states
CPT/HCPCS: 93312; 93460; C1751; C1760; C1894; J1200; J1644; J2250; J2930; J3010; J3490; J7030; Q9967; U0003; 99152; 99153

== ENCOUNTER → 2020-04-04 | Outpatient (CLI) | payer MEDICARE, MEDICAID ==
[~2020-04-04] VITALS: Ht 30.5 cm; Wt 0.5 kg
[~2020-04-04] MED LIST changes: +IOHEXOL 350 MG/ML 100ML IJ ONE; +diphenhdrAMINE HCL 50 MG/1 ML VL IV ONE; +diphenhdrAMINE HCL 50 MG/1 ML VL ONE; +methylPREDNISolone SOD SUCC 125 MG/2 ML VL IV ONE; +methylPREDNISolone SOD SUCC 125 MG/2 ML VL ONE
--- NOTE | 2020-04-04 11:42 | NUR ---
PT. TO CLINIC FOR CTA OF CHEST PER DR. RNAKIN. LATONYA WITH PT. FOR SUPPORT. ORDERS RECEIVED AND CARRIED OUT.
[2020-04-04 11:45] VITALS: BP 127/52
--- NOTE | 2020-04-04 11:56 | NUR ---
IV insertion IV access obtained, via clean sterile technique by inserting 18 gauge catheter at after attempt(s). IV secured properly. No trauma to site. Patient tolerated procedure well. CREAT. LEVEL DRAWN AND SENT.
--- NOTE | 2020-04-04 12:05 | NUR ---
MEDS:PT. MEDICATED WITH BENADRYL 50MG SIVP PER MD ORDER FOR IODINE ALLERGY.
--- NOTE | 2020-04-04 12:08 | NUR ---
MEDS: PT. MEDICATED WITH SOLUMEDROL 125MG SIVP PER MD ORDER.
--- NOTE | 2020-04-04 12:40 | NUR ---
PT. TO AND FROM CT VIA WC. TOLERATED PROCEDURE WELL WITH NO C/O. REMAINS AOX4, O2 SATS 98% RA RR 18, HR 74
--- NOTE | 2020-04-04 13:00 | NUR ---
PT. TO AND FROM RR WITH FAMILY ASSIST. FOR VOIDING. RESTING AND STATING FEELING FINE.
[2020-04-04 13:26] VITALS: BP 137/60
--- NOTE | 2020-04-04 13:26 | NUR ---
IV removal IV DC'd with sterile technique, catheter fully intact. Pressure dressing applied to site. Patient tolerated procedure well. Discharged with aftercare instructions per MD. NOTE: PT. INSTRUCTED TO INCREASE FLUIDS FOR NEXT 24 HRS. DC'D STABLE WITH GRANDDAUGHTER.
== END | disposition home or self-care (01) ==
LOC: Rad HDHVI 11:16
PROVIDERS: ATTEND Internal Medicine Cardiovascular Disease
DX: I25.10 Atherosclerotic heart disease of native coronary artery without angina pectoris (principal); I10 Essential (primary) hypertension; R94.4 Abnormal results of kidney function studies
CPT/HCPCS: 36415; 82565; 96374; 96375; G0463; J1200; J2930; Q9967

== ENCOUNTER 2021-01-18 10:51 | Day surgery (SDC) | payer MEDICARE, MEDICAID ==
[2021-01-15 13:19] LABS: Basophils # (auto) 0.1 10 ^3/uL (0-0.2); Basophils % (auto) 1.1 % (0.0-2.0); Eosinophils # (auto) 0.2 10 ^3/uL (0-0.8); Eosinophils % (auto) 2.8 % (0.0-7.0); Hematocrit 36.3 % (36.0-46.0); Hemoglobin 12.4 g/dL (12.2-16.2); Lymphocytes % (auto) 33.4 % (10.0-50.0); Mean Corpuscular Hemoglobin 32.8 pg (28.0-32.0); Mean Corpuscular Hgb Conc. 34.1 g/dL (32.0-36.0); Mean Corpuscular Volume 96.1 fL (80.0-100.0); Monocytes % (auto) 16.4 % (0.0-12.0); Neutrophils # (auto) 2.8 10 ^3/uL (1.6-8.6); Neutrophils % (auto) 46.3 % (37.0-80.0); Nucleated Red Blood Cells % 0.2 %; Platelet Count (auto) 141 10^3/uL (140-450); Red Blood Cells 3.78 10^6/uL (4.0-5.20); Red Cell Distribution Width 14.1 % (11.8-14.3)
[2021-01-15 13:30] LABS: INR 0.98 (0.9-1.15); Partial Thromboplastin Time 25.6 sec (23.0-31.2)
[2021-01-15 13:48] LABS: Albumin 3.4 g/dL (3.4-5.0); Calcium 9.3 mg/dL (8.5-10.1); Potassium 4.1 mmol/L (3.5-5.1)
[2021-01-15 13:53] LABS: BUN/Creatinine Ratio 13.3; Bilirubin, Total 0.3 mg/dL (0.2-1.0); Total Protein 7.4 g/dL (6.4-8.2)
[~2021-01-18] VITALS: Ht 165.1 cm; Wt 91.6 kg
[~2021-01-18 10:51] MED LIST changes: +AMLO-496 PO; -AMLO10TA13 PO; -IOHEXOL 350 MG/ML 100ML IJ ONE; -diphenhdrAMINE HCL 50 MG/1 ML VL IV ONE; -diphenhdrAMINE HCL 50 MG/1 ML VL ONE; -methylPREDNISolone SOD SUCC 125 MG/2 ML VL IV ONE; -methylPREDNISolone SOD SUCC 125 MG/2 ML VL ONE
[2021-01-18 12:55] VITALS: BP 132/51
== END 2021-01-18 14:00 | disposition home or self-care (01) ==
LOC: GI 10:51
PROVIDERS: ATTEND Internal Medicine Gastroenterology
DX: R10.13 Epigastric pain (principal); K44.9 Diaphragmatic hernia without obstruction or gangrene; K29.50 Unspecified chronic gastritis without bleeding; K22.2 Esophageal obstruction; K21.9 Gastro-esophageal reflux disease without esophagitis; K29.90 Gastroduodenitis, unspecified, without bleeding; K31.89 Other diseases of stomach and duodenum; G62.9 Polyneuropathy, unspecified; I11.0 Hypertensive heart disease with heart failure; Z87.891 Personal history of nicotine dependence; Z88.5 Allergy status to narcotic agent; Z91.041 Radiographic dye allergy status; Z88.8 Allergy status to other drugs, medicaments and biological substances; Z86.19 Personal history of other infectious and parasitic diseases; Z90.710 Acquired absence of both cervix and uterus; Z80.8 Family history of malignant neoplasm of other organs or systems; Z79.899 Other long term (current) drug therapy; Z20.822 Contact with and (suspected) exposure to COVID-19; Z68.33 Body mass index [BMI] 33.0-33.9, adult
CPT/HCPCS: 36415; 43239; 43450; 80053; 85025; 85610; 85730; U0003

== ENCOUNTER 2021-04-23 09:37 | Day surgery (SDC) | payer MEDICARE, MEDICAID ==
[2021-04-19 09:42] LABS: Basophils # (auto) 0 10 ^3/uL (0-0.2); Basophils % (auto) 1.1 % (0.0-2.0); Eosinophils # (auto) 0.1 10 ^3/uL (0-0.8); Eosinophils % (auto) 3.4 % (0.0-7.0); Hematocrit 35.8 % (36.0-46.0); Hemoglobin 12.1 g/dL (12.2-16.2); Lymphocytes # (auto) 1.9 10 ^3/uL (0.4-5.4); Lymphocytes % (auto) 45.7 % (10.0-50.0); Mean Corpuscular Hemoglobin 32.4 pg (28.0-32.0); Mean Corpuscular Hgb Conc. 33.8 g/dL (32.0-36.0); Mean Corpuscular Volume 95.6 fL (80.0-100.0); Monocytes # (auto) 0.6 10 ^3/uL (0-1.3); Monocytes % (auto) 13.8 % (0.0-12.0); Neutrophils # (auto) 1.5 10 ^3/uL (1.6-8.6); Red Blood Cells 3.74 10^6/uL (4.0-5.20); Red Cell Distribution Width 13.7 % (11.8-14.3); White Blood Cell 4.2 10^3/uL (4.4-10.8)
[2021-04-19 10:38] LABS: Potassium 4.1 mmol/L (3.5-5.1)
[2021-04-19 10:51] LABS: BUN/Creatinine Ratio 11.9; Bilirubin, Total 0.5 mg/dL (0.2-1.0); Calcium 8.7 mg/dL (8.5-10.1); Total Protein 6.8 g/dL (6.4-8.2)
[~2021-04-23] VITALS: Ht 165.1 cm; Wt 93.4 kg
[~2021-04-23 09:37] MED LIST changes: -LISI40TA11 PO
[2021-04-23] MEDS ORDERED: SODIUM CHLORIDE LOCK 10 ML ONE (10:38)
[2021-04-23] MEDS: diphenhdrAMINE HCL 50 MG/1 ML VL ONE ×2 (10:44→10:49)
[2021-04-23] MEDS: fentaNYL CITRATE 100 MCG/2 ML VL ONE ×3 (10:44→10:51)
[2021-04-23] MEDS: MIDAZOLAM HCL 5 MG/ML-1ML VIAL ONE ×2 (10:44→10:47)
[2021-04-23 11:00] VITALS: BP 118/64
== END 2021-04-23 14:10 | disposition home or self-care (01) ==
LOC: GI 09:37
PROVIDERS: ATTEND Internal Medicine Gastroenterology
DX: R19.4 Change in bowel habit (principal); D12.3 Benign neoplasm of transverse colon; K62.1 Rectal polyp; K57.30 Diverticulosis of large intestine without perforation or abscess without bleeding; K64.8 Other hemorrhoids; I10 Essential (primary) hypertension; K21.9 Gastro-esophageal reflux disease without esophagitis; Z20.822 Contact with and (suspected) exposure to COVID-19; Z86.73 Personal history of transient ischemic attack (TIA), and cerebral infarction without residual deficits; Z96.651 Presence of right artificial knee joint; Z98.890 Other specified postprocedural states; Z79.899 Other long term (current) drug therapy; Z91.018 Allergy to other foods; Z88.5 Allergy status to narcotic agent; Z90.710 Acquired absence of both cervix and uterus
CPT/HCPCS: 36415; 45385; 80053; 85025; 88305; J1200; J2250; J3010; J7030; U0003; G0500

== ENCOUNTER → 2022-04-08 | Outpatient (CLI) | payer MEDICAID, OTHER | END | disposition home or self-care (01) | LOC: XYW 09:49 | PROVIDERS: ATTEND Student in an Organized Health Care Education/Training Program | DX: I83.93 Asymptomatic varicose veins of bilateral lower extremities (principal); I73.9 Peripheral vascular disease, unspecified | CPT/HCPCS: 93925 ==

== ENCOUNTER → 2022-04-17 | Outpatient (CLI) | payer MEDICARE, MEDICAID | END | disposition home or self-care (01) | LOC: XYW 15:09 | PROVIDERS: ATTEND Internal Medicine | DX: I08.3 Combined rheumatic disorders of mitral, aortic and tricuspid valves (principal); I48.0 Paroxysmal atrial fibrillation | CPT/HCPCS: 93306 ==

== ENCOUNTER → 2022-04-28 | Outpatient (CLI) | payer MEDICARE, MEDICAID ==
[~2022-04-28] MED LIST changes: +ATOR10TA52 PO; +DOCU-94 PO; +LOSA-39 PO; +OMEP20TA PO
[2022-04-28 14:06] LABS: Basophils # (auto) 0.1 10 ^3/uL (0-0.2); Basophils % (auto) 1.3 % (0.0-2.0); Eosinophils # (auto) 0.1 10 ^3/uL (0-0.8); Eosinophils % (auto) 2.7 % (0.0-7.0); Hematocrit 38.6 % (36.0-46.0); Hemoglobin 12.5 g/dL (12.2-16.2); Lymphocytes % (auto) 40.6 % (10.0-50.0); Mean Corpuscular Hemoglobin 31.3 pg (28.0-32.0); Mean Corpuscular Hgb Conc. 32.3 g/dL (32.0-36.0); Mean Corpuscular Volume 96.7 fL (80.0-100.0); Monocytes # (auto) 0.5 10 ^3/uL (0-1.3); Monocytes % (auto) 10.8 % (0.0-12.0); Neutrophils # (auto) 2.2 10 ^3/uL (1.6-8.6); Neutrophils % (auto) 44.6 % (37.0-80.0); Nucleated Red Blood Cells % 0.2 %; Red Blood Cells 3.99 10^6/uL (4.0-5.20); Red Cell Distribution Width 13.7 % (11.8-14.3)
[2022-04-28 14:21] LABS: INR 0.98 (0.9-1.15); Partial Thromboplastin Time 28.6 sec (24.6-33.4)
[2022-04-28 14:52] LABS: Albumin 3.8 g/dL (3.4-5.0); BUN/Creatinine Ratio 12.6; Potassium 4.5 mmol/L (3.5-5.1)
[2022-04-28 14:55] LABS: Bilirubin, Total 0.3 mg/dL (0.2-1.0); Total Protein 7.4 g/dL (6.4-8.2)
== END | disposition home or self-care (01) ==
LOC: LAB 13:50
PROVIDERS: ATTEND Internal Medicine
DX: Z01.812 Encounter for preprocedural laboratory examination (principal); I73.9 Peripheral vascular disease, unspecified; I50.43 Acute on chronic combined systolic (congestive) and diastolic (congestive) heart failure
CPT/HCPCS: 36415; 80053; 85025; 85610; 85730

== ENCOUNTER 2022-04-30 08:15 | Day surgery (SDC) | payer MEDICARE, MEDICAID ==
[~2022-04-30] VITALS: Ht 165.1 cm; Wt 93.4 kg
[~2022-04-30 08:15] MED LIST changes: -DULO60CA PO
[2022-04-30] MEDS ORDERED: MIDAZOLAM HCL 2MG/2ML 2ml VIAL (1mg/ml) ONE (12:43)
[2022-04-30] MEDS ORDERED: ANGIOMAX 250 MG VIAL IV ONE (12:43)
[2022-04-30] MEDS ORDERED: fentaNYL CITRATE 100 MCG/2 ML VL ONE (12:43)
[2022-04-30] MEDS ORDERED: LIDOCAINE 2%HCL (LOCAL ANESTH.) INJ 20ML MDV ONE (12:43)
[2022-04-30] MEDS ORDERED: SODIUM CHL 0.9% 0 ML ONE (12:43)
[2022-04-30] MEDS ORDERED: methylPREDNISolone SOD SUCC 125 MG/2 ML VL ONE (12:44)
[2022-04-30] MEDS ORDERED: FAMOTIDINE (10MG/ML) 2ML VL IV ONE (12:45)
[2022-04-30] MEDS ORDERED: diphenhdrAMINE HCL 50 MG/1 ML VL ONE (12:45)
[2022-04-30] MEDS ORDERED: IOHEXOL 350 MG/ML 100ML IJ ONE (13:18)
== END 2022-04-30 17:32 | disposition home or self-care (01) ==
LOC: CATH 08:15
PROVIDERS: ATTEND Internal Medicine
DX: I73.9 Peripheral vascular disease, unspecified (principal); I13.0 Hypertensive heart and chronic kidney disease with heart failure and stage 1 through stage 4 chronic kidney disease, or unspecified chronic kidney disease; N18.4 Chronic kidney disease, stage 4 (severe); I50.43 Acute on chronic combined systolic (congestive) and diastolic (congestive) heart failure; I48.0 Paroxysmal atrial fibrillation; I42.1 Obstructive hypertrophic cardiomyopathy; E78.00 Pure hypercholesterolemia, unspecified; Z95.2 Presence of prosthetic heart valve; Z87.891 Personal history of nicotine dependence; Z20.822 Contact with and (suspected) exposure to COVID-19; Z90.710 Acquired absence of both cervix and uterus; Z95.5 Presence of coronary angioplasty implant and graft
CPT/HCPCS: 36246; 75716; C1760; C1769; C1894; J1200; J1644; J2250; J2930; J3010; J3490; Q9967; U0003; 37225; 99152

== ENCOUNTER → 2022-06-03 | Outpatient (CLI) | payer MEDICARE, MEDICAID ==
[~2022-06-03] VITALS: Ht 165.1 cm; Wt 93.4 kg
[~2022-06-03] MED LIST changes: +ADENOSINE 78 MG in GIVE UN-DILUTED 0 ML IV STA
[2022-06-03 09:20] VITALS: BP 150/82
== END | disposition home or self-care (01) ==
LOC: XY 07:35
PROVIDERS: ATTEND Internal Medicine
DX: I13.0 Hypertensive heart and chronic kidney disease with heart failure and stage 1 through stage 4 chronic kidney disease, or unspecified chronic kidney disease (principal); I50.43 Acute on chronic combined systolic (congestive) and diastolic (congestive) heart failure; N18.2 Chronic kidney disease, stage 2 (mild); I48.0 Paroxysmal atrial fibrillation; I42.1 Obstructive hypertrophic cardiomyopathy; D68.69 Other thrombophilia; E78.5 Hyperlipidemia, unspecified; E78.00 Pure hypercholesterolemia, unspecified; I73.9 Peripheral vascular disease, unspecified; Z95.2 Presence of prosthetic heart valve
CPT/HCPCS: 78452; 93017; A9500; J0153

== ENCOUNTER → 2022-09-16 | Outpatient (CLI) | payer MEDICARE, MEDICAID ==
[~2022-09-16] MED LIST changes: -ADENOSINE 78 MG in GIVE UN-DILUTED 0 ML IV STA
[2022-09-16 10:43] LABS: Albumin 3.9 g/dL (3.4-5.0); Calcium 9.5 mg/dL (8.5-10.1); Potassium 4.3 mmol/L (3.5-5.1)
[2022-09-16 10:50] LABS: BUN/Creatinine Ratio 17.1; Bilirubin, Total 0.3 mg/dL (0.2-1.0); Total Protein 8.1 g/dL (6.4-8.2)
== END | disposition home or self-care (01) ==
LOC: LAB 09:58
PROVIDERS: ATTEND Internal Medicine
DX: E78.00 Pure hypercholesterolemia, unspecified (principal)
CPT/HCPCS: 36415; 80053; 80061

== ENCOUNTER → 2023-05-21 | Outpatient (CLI) | payer MEDICARE, MEDICAID ==
[~2023-05-21] MED LIST changes: -AMLO-496 PO; +AMLO1TAB23 PO; +GABA-1250 PO; -GABA300C10 PO; -LOSA-39 PO; +LOSA100T58 PO
[2023-05-21 14:45] LABS: Basophils # (auto) 0 10 ^3/uL (0-0.2); Basophils % (auto) 0.7 % (0.0-2.0); Eosinophils # (auto) 0.1 10 ^3/uL (0-0.8); Eosinophils % (auto) 2.5 % (0.0-7.0); Hematocrit 37.9 % (36.0-46.0); Hemoglobin 12.8 g/dL (12.2-16.2); Lymphocytes # (auto) 2.4 10 ^3/uL (0.4-5.4); Lymphocytes % (auto) 41.5 % (10.0-50.0); Mean Corpuscular Hgb Conc. 33.8 g/dL (32.0-36.0); Mean Corpuscular Volume 97.8 fL (80.0-100.0); Monocytes # (auto) 0.7 10 ^3/uL (0-1.3); Monocytes % (auto) 12.6 % (0.0-12.0); Neutrophils # (auto) 2.4 10 ^3/uL (1.6-8.6); Neutrophils % (auto) 42.7 % (37.0-80.0); Nucleated Red Blood Cells % 0.1 %; Red Blood Cells 3.88 10^6/uL (4.0-5.20); Red Cell Distribution Width 13.7 % (11.8-14.3); White Blood Cell 5.7 10^3/uL (4.4-10.8)
[2023-05-21 15:20] LABS: Alanine Aminotransferase 13 U/L (7-40); Alkaline Phosphatase 75 U/L (46-116); Anion Gap 7 (5-15); Aspartate Aminotransferase 20 U/L (13-40); BUN/Creatinine Ratio 11.1 (10.0-20.0); Bilirubin, Total 0.5 mg/dL (0.2-1.0); Blood Urea Nitrogen 10 mg/dL (9-23); Calcium 9.3 mg/dL (8.7-10.4); Carbon Dioxide 25 mmol/L (20-30); Chloride 111 mmol/L (98-107); Glucose 102 mg/dL (74-106); Potassium 4.1 mmol/L (3.5-5.1); Sodium 143 mmol/L (136-145); Total Protein 7.1 g/dL (5.7-8.2); Uric Acid 3.4 mg/dL (3.1-7.8)
[2023-05-21 15:21] LABS: Albumin 4.3 g/dL (3.2-4.8)
[2023-05-21 15:54] LABS: Erythrocyte Sedimentation Rate 16 mm/hr (0-20)
== END | disposition home or self-care (01) ==
LOC: LAB 14:26
PROVIDERS: ATTEND Internal Medicine
DX: I10 Essential (primary) hypertension (principal); L72.3 Sebaceous cyst; I49.5 Sick sinus syndrome
CPT/HCPCS: 36415; 80053; 84550; 85025; 85652

== ENCOUNTER → 2023-09-10 | Outpatient (CLI) | payer MEDICARE, MEDICAID ==
[2023-09-10 13:24] LABS: Urine Epithelial Cast None Seen /hpf (<5)
[2023-09-10 13:30] LABS: Basophils # (auto) 0.1 10 ^3/uL (0-0.2); Basophils % (auto) 1.3 % (0.0-2.0); Eosinophils # (auto) 0.1 10 ^3/uL (0-0.8); Lymphocytes # (auto) 2.5 10 ^3/uL (0.4-5.4); Lymphocytes % (auto) 47.7 % (10.0-50.0); Mean Corpuscular Hemoglobin 32.3 pg (28.0-32.0); Mean Corpuscular Hgb Conc. 33.4 g/dL (32.0-36.0); Mean Corpuscular Volume 96.8 fL (80.0-100.0); Monocytes # (auto) 0.6 10 ^3/uL (0-1.3); Monocytes % (auto) 10.8 % (0.0-12.0); Neutrophils % (auto) 38.2 % (37.0-80.0); Nucleated Red Blood Cells % 0.1 %; Red Blood Cells 4.03 10^6/uL (4.0-5.20); Red Cell Distribution Width 13.5 % (11.8-14.3); White Blood Cell 5.3 10^3/uL (4.4-10.8)
[2023-09-10 13:42] LABS: Urine Bacteria NONE SEEN /hpf (None Seen); Urine Blood Negative /uL (Negative); Urine Clarity Clear (Clear); Urine Color Yellow (Yellow); Urine Protein, UAD TRACE (Negative); Urine Specific Gravity 1.017 (1.001-1.035); Urine Urobilinogen Normal (Negative); Urine WBC 5 /hpf (0 - 5); Urine pH 7.5 (5.0-8.0)
[2023-09-10 14:00] LABS: Alanine Aminotransferase 16 U/L (7-40); Albumin 4.5 g/dL (3.2-4.8); Alkaline Phosphatase 71 U/L (46-116); Anion Gap 8 (5-15); Aspartate Aminotransferase 24 U/L (13-40); BUN/Creatinine Ratio 7.9 (10.0-20.0); Bilirubin, Total 0.5 mg/dL (0.2-1.0); Blood Urea Nitrogen 7 mg/dL (9-23); Calcium 9.9 mg/dL (8.5-10.1); Carbon Dioxide 26 mmol/L (20-30); Chloride 108 mmol/L (98-107); Cholesterol 143 mg/dL (< 200); Glucose 98 mg/dL (74-106); HDL Cholesterol 49 mg/dL (40-59); LDL Cholesterol 71 mg/dL (< 100); Potassium 4.2 mmol/L (3.5-5.1); Sodium 142 mmol/L (136-145); Total Protein 7.6 g/dL (5.7-8.2); Triglycerides 108 mg/dL (< 150)
[2023-09-10 14:09] LABS: Uric Acid 3.3 mg/dL (3.1-7.8)
[2023-09-10 14:11] LABS: Magnesium 2.1 mg/dL (1.6-2.6)
[2023-09-10 14:38] LABS: Erythrocyte Sedimentation Rate 20 mm/hr (0-20)
[2023-09-10 14:47] LABS: Free T4 (Free Thyroxine) 1.01 ng/dL (0.89-1.76)
== END | disposition home or self-care (01) ==
LOC: LAB 13:08
PROVIDERS: ATTEND Internal Medicine
DX: I12.9 Hypertensive chronic kidney disease with stage 1 through stage 4 chronic kidney disease, or unspecified chronic kidney disease (principal); N18.31 Chronic kidney disease, stage 3a; R73.03 Prediabetes
CPT/HCPCS: 36415; 80053; 80061; 81001; 82607; 83036; 83735; 83970; 84439; 84443; 84550; 85025; 85652